=== PATIENT | female | born 1955 | race Caucasian/White ===

== ENCOUNTER → 2016-10-08 | Outpatient (CLI) | payer OTHER ==
[2015-11-06 11:09] VITALS: BP 117/93
[~2016-10-08] MED LIST: ASPI81TA9 PO; LISI1TAB7 PO; LISINOPRIL; SIMV20TA3 PO; VIT1CAPS17 PO
--- NOTE | 2016-10-08 15:10 | RAD ---
DATE: 10/08/2016 EXAM: DIGITAL SCREEN BILAT W/CAD HISTORY: Routine screening COMPARISON: None available This study was interpreted with the benefit of Computerized Aided Detection (CAD). FINDINGS: There are scattered fibroglandular densities in the breasts in a slightly nodular pattern. There is a dominant nodule measuring 6 mm in the right breast at approximately the 10:00 location. Some of its margins are smooth while others are obscured by adjacent fibroglandular tissues. There is a benign type calcification in the right breast. No suspicious microcalcifications are evident. IMPRESSION: Small right breast nodule. Sonographic evaluation is suggested. BI-RADS CATEGORY: 0 INCOMPLETE: NEEDS ADDITIONAL IMAGING EVALUATION AND/OR PRIOR MAMMOGRAMS FOR COMPARISON. RECOMMENDED FOLLOW-UP: ADD ADDITIONAL IMAGING PQRS compliance statement: Patient information was entered into a reminder system with a target due date for the next mammogram. Mammography is a sensitive method for finding small breast cancers, but it does not detect them all and is not a substitute for careful clinical examination. A negative mammogram does not negate a clinically suspicious finding and should not result in delay in biopsying a clinically suspicious abnormality. "Our facility is accredited by the [employer] Mammography Program."
== END | disposition home or self-care (01) ==
LOC: MAMMO 14:20
PROVIDERS: ATTEND Internal Medicine
DX: Z12.31 Encounter for screening mammogram for malignant neoplasm of breast (principal)
CPT/HCPCS: G0202; 77067

== ENCOUNTER → 2016-10-15 | Outpatient (CLI) | payer OTHER ==
[2015-11-06 11:09] VITALS: BP 117/93
--- NOTE | 2016-10-15 13:10 | RAD ---
DATE: 10/15/2016 EXAM: DIGITAL DIAGNOSTIC RT, BREAST RIGHT HISTORY: Suspicious screening study COMPARISON: 10/08/2016 This study was interpreted with the benefit of Computerized Aided Detection (CAD). FINDINGS: Spot compression and straight mediolateral views of the right breast were obtained and correlated with the screening images. The spot compression cc view confirms the presence of a 6 mm nodule projected over the anterolateral aspect of the right breast. It demonstrates some smooth and other partially obscured margins. It is less clearly delineated on the straight mediolateral views, however, it probably lies superiorly. On the straight mediolateral views there is also a smooth 4-5 mm superficial nodule seen inferiorly. It is not clearly delineated on the cc views, probably obscured by overlying fibroglandular shadows. This does not appear to correspond to the lateral nodule due to differences in size. Right breast ultrasound, 10/15/2016: A targeted ultrasound exam of the upper outer quadrant was performed. No cystic or solid lesion is identified. There is no sonographic correlate for the nodule seen on the mammograms. Under mammographic guidance we also marked the skin surface superiorly over the lateral mammographic nodule and repeated the ultrasound evaluation. Again, no corresponding breast nodule could be seen either superior or inferiorly at this level in the lateral aspect of the right breast. IMPRESSION: 1. Small right lateral breast nodule with no sonographic correlate. This may represent a fibroadenoma or lymph node which cannot be sonographically differentiated from the normal heterogeneous fibroglandular shadows. A neoplastic etiology cannot be excluded. Follow-up mammography in 4-6 months is suggested. An attempt at stereotactic biopsy would be a reasonable alternative. 2. Additional tiny superficial benign-appearing nodule in the inferior aspect of the right breast. Mammographic follow-up is suggested. BI-RADS CATEGORY: 3 PROBABLY BENIGN FINDING(S)-SHORT INTERVAL FOLLOW-UP SUGGESTED RECOMMENDED FOLLOW-UP: 6M 6 MONTH FOLLOW-UP PQRS compliance statement: Patient information was entered into a reminder system with a target due date for the next mammogram. Mammography is a sensitive method for finding small breast cancers, but it does not detect them all and is not a substitute for careful clinical examination. A negative mammogram does not negate a clinically suspicious finding and should not result in delay in biopsying a clinically suspicious abnormality. "Our facility is accredited by the [employer] Mammography Program."
== END | disposition home or self-care (01) ==
LOC: US 07:24
PROVIDERS: ATTEND Internal Medicine
DX: N63 Unspecified lump in breast (principal); R92.8 Other abnormal and inconclusive findings on diagnostic imaging of breast
CPT/HCPCS: 76641; G0206; 77065

== ENCOUNTER → 2017-05-27 | Outpatient (CLI) | payer OTHER ==
[2015-11-06 11:09] VITALS: BP 117/93
[~2017-05-27] MED LIST changes: +ASPI-612 PO; -ASPI81TA9 PO
--- NOTE | 2017-05-27 10:58 | RAD ---
DATE: 05/27/2017 EXAM: DIGITAL DIAGNOSTIC RT HISTORY: Follow-up. COMPARISON: Note is made of the screening examination October 08, 2016 and the diagnostic examination 10/15/2016 This study was interpreted with the benefit of Computerized Aided Detection (CAD). FINDINGS: Breast Density: SCATTERED The breast parenchyma shows scattered fibroglandular densities. Breast parenchyma level B. Small nodule in the right breast is seen and appears unchanged compared to the previous exam. There has not been a significant change in the appearance of the breast relative to the previous exam follow-up bilateral mammography in September, IMPRESSION: Unchanged nodule right breast. Benign findings. Follow-up bilateral screening examination suggested in 3-6 months BI-RADS CATEGORY: 2 BENIGN FINDING(S) RECOMMENDED FOLLOW-UP: 6M 6 MONTH FOLLOW-UP PQRS compliance statement: Patient information was entered into a reminder system with a target due date September, for the next mammogram. Mammography is a sensitive method for finding small breast cancers, but it does not detect them all and is not a substitute for careful clinical examination. A negative mammogram does not negate a clinically suspicious finding and should not result in delay in biopsying a clinically suspicious abnormality. "Our facility is accredited by the [employer] Mammography [employer]."
== END | disposition home or self-care (01) ==
LOC: MAMMO 10:00
PROVIDERS: ATTEND Internal Medicine
DX: N63 Unspecified lump in breast (principal)
CPT/HCPCS: G0206; 77065

== ENCOUNTER → 2019-09-07 | Outpatient (CLI) | payer MEDICARE, OTHER ==
[2015-11-06 11:09] VITALS: BP 117/93
[~2019-09-07] MED LIST changes: +LISI1TAB20 PO; -LISI1TAB7 PO; +SIMV20TA18 PO; -SIMV20TA3 PO
--- NOTE | 2019-09-07 11:06 | CARD ---
MR#: [id number] Date of Study: 09/07/2019 Ordering Physician: RENETTA GALLEGOS, Referring Physician: RENETTA GALLEGOS, Tech: Liz Parmar APPROVED REPORT EXAM: Two-dimensional and M-mode echocardiogram with Doppler and color Doppler. Other Information Quality : AverageHR: 51bpm INDICATION Atrial Fibrillation Murmur RISK FACTORS Hypertension Hyperlipidemia Previous smoker 2D DIMENSIONS RVDd3.8 (2.9-3.5cm)Left Atrium(2D)3.9 (1.6-4.0cm) IVSd1.2 (0.7-1.1cm)Aortic Root(2D)3.2 (2.0-3.7cm) LVDd4.6 (3.9-5.9cm)LVOT Diameter2.2 (1.8-2.4cm) PWd1.0 (0.7-1.1cm)LVDs3.1 (2.5-4.0cm) FS (%) 32.6 %SV59.8 ml Aortic Valve AoV Peak Len.167.0cm/sAoV VTI36.4cm AO Peak GR.11.2mmHgLVOT Peak Len.128.3cm/s LVOT VTI 28.97cmAO Mean GR.5mmHg SAURAV (VMAX)2.48gt6TQR (VTI)2.98cm2 AI P 1/2 Onfd933cu Mitral Valve MV E Vtetwdsj48.3cm/sMV DECEL FLTA672el MV A Bhznwaeh90.0cm/sMV E Mean Gr.2mmHg MV YQX30roD/A Ratio1.0 MVA (PHT)3.85cm2 TDI E/Lateral E'13.7E/Medial E'14.6 Pulmonary Valve PV Peak Rywdgczj546.9cm/sPV Peak Grad.5mmHg Tricuspid Valve TR P. Eehjijys127nr/sRAP NVUYYXXL7pdMl TR Peak Gr.73lyWrCMKQ31dpZz Pulmonary Vein S1 Zlrezzpi75.4cm/sD2 Qcrmigea59.9cm/s PVa tnmczgns687zral LEFT VENTRICLE The left ventricle is normal size. There is mild concentric left ventricular hypertrophy. The left ve ntricular systolic function is normal and the ejection fraction is within normal range. The Ejection Fraction is 55-60%. There is normal LV segmental wall motion. Transmitral Doppler flow pattern is Gra de I-abnormal relaxation pattern. RIGHT VENTRICLE The right ventricle is normal size. There is normal right ventricular wall thickness. The right ventr icular systolic function is normal. ATRIA The left atrium size is normal. The right atrium size is normal. The interatrial septum is intact wit h no evidence for an atrial septal defect or patent foramen ovale as noted on 2-D or Doppler imaging. AORTIC VALVE The aortic valve is thickened but opens well. Doppler and Color Flow revealed trace aortic regurgitat ion. There is no significant aortic valvular stenosis. MITRAL VALVE The mitral valve is normal in structure and function. There is no evidence of mitral valve prolapse. There is no mitral valve stenosis. Doppler and Color-flow revealed trace mitral regurgitation. TRICUSPID VALVE The tricuspid valve is normal in structure and function. Doppler and Color Flow revealed trace tricus pid regurgitation with an estimated PAP of 32 mmHg. There is no tricuspid valve stenosis. PULMONIC VALVE The pulmonic valve is not well visualized. Doppler and Color Flow revealed trace pulmonic valvular re gurgitation. GREAT VESSELS The aortic root is normal in size. The IVC is normal in size and collapses >50% with inspiration. PERICARDIAL EFFUSION There is no evidence of significant pericardial effusion. Critical Notification Critical Value: No <Conclusion> The left ventricle is normal size. The left ventricular systolic function is normal and the ejection fraction is within normal range. The Ejection Fraction is 55-60%. There is mild concentric left ventricular hypertrophy. Doppler and Color Flow revealed trace aortic regurgitation. There is no significant aortic valvular stenosis. Doppler and Color-flow revealed trace mitral regurgitation. Doppler and Color Flow revealed trace tricuspid regurgitation with an estimated PAP of 32 mmHg. Signed by : Renetta Gallegos MD Electronically Approved : 09/07/2019 11:06:07
== END | disposition home or self-care (01) ==
LOC: ECHO 09:52
PROVIDERS: ATTEND Internal Medicine Cardiovascular Disease
DX: I11.9 Hypertensive heart disease without heart failure (principal); I48.91 Unspecified atrial fibrillation; E78.5 Hyperlipidemia, unspecified; Z87.891 Personal history of nicotine dependence
CPT/HCPCS: 93306

== ENCOUNTER → 2020-02-12 | Outpatient (CLI) | payer MEDICARE ==
[2015-11-06 11:09] VITALS: BP 117/93
--- NOTE | 2020-02-12 11:24 | RAD ---
DATE: 02/12/2020 9:16 AM EXAM: MAMMO MEJIA SCREENING BILATERAL HISTORY: Screening COMPARISON: 05/27/2017 Bilateral CC and MLO views of the breasts were performed. Bilateral breast tomosynthesis was performed in CC and MLO projections. This study was interpreted with the benefit of Computerized Aided Detection (CAD). FINDINGS: Breast Density: FATTY The Breast Parenchyma is primarily fatty replaced. Breast parenchyma level density A. No suspicious masses, microcalcifications or architectural distortion is present to suggest malignancy in either breast. The visualized axillae are unremarkable. IMPRESSION: No mammographic evidence of malignancy. BI-RADS CATEGORY: 1 NEGATIVE RECOMMENDED FOLLOW-UP: 12M 12 MONTH FOLLOW-UP Annual screening mammography is recommended, unless clinically indicated sooner based on symptoms or change in physical exam. PQRS compliance statement: Patient information was entered into a reminder system with a target due date 02/12/2021 for the next mammogram. Mammography is a sensitive method for finding small breast cancers, but it does not detect them all and is not a substitute for careful clinical examination. A negative mammogram does not negate a clinically suspicious finding and should not result in delay in biopsying a clinically suspicious abnormality. "Our facility is accredited by the [employer] Mammography Program."
== END | disposition home or self-care (01) ==
LOC: MAMMO 11:02
PROVIDERS: ATTEND Internal Medicine
DX: Z12.31 Encounter for screening mammogram for malignant neoplasm of breast (principal)
CPT/HCPCS: 77063; 77067

== ENCOUNTER → 2020-03-25 | Outpatient (CLI) | payer MEDICARE ==
[2015-11-06 11:09] VITALS: BP 117/93
--- NOTE | 2020-03-25 09:28 | KCIC ---
MRI Cervical Spine Without Contrast History:Neck pain for one year, right shoulder pain for 6 to 8 months Technique: Multiplanar, multi sequential noncontrast MR imaging was performed of the cervical spine. Comparison: None Findings: There is motion degradation. Cervical cord caliber is within normal limits without defined or expansile signal abnormality. Cervical vertebral body stature is maintained. There is very minimal posterior subluxation of C5 relative to C6 and minimal grade 1 anterior spondylolisthesis C3-4, negligible anterior spondylolisthesis at C4-5. There is moderate to severe degenerative disc disease C5-6, minimally C3-4, mild disc desiccation C4-5 and C6-7. There is anterior annular tear at C4-5. There is no significant marrow edema. C2-C3: Neural foramina and spinal canal are adequate. C3-C4: There is severe left facet degenerative change. There is mild left uncovertebral degenerative change. There is moderate to severe narrowing of the left neural foramen. Right neural foramen and spinal canal are adequate. C4-C5: There is very shallow posterior central protrusion. Central canal is borderline about 10 mm. There is facet degenerative change greater on the left. Neural foramina are not significantly narrowed, very mild narrowing on the right. C5-C6: There is broad posterior protrusion about 2 to 3 mm AP. Central canal is narrowed to about 8 to 9 mm. There is bilateral facet degenerative change. There is uncovertebral degenerative change greater on the right. Poorly characterized due to motion, there is probably a small protrusion at the anterior proximal aspect of the right neural foramen. There is suspected moderate to severe narrowing of the proximal right neural foramen. There is likely mild narrowing of the left neural foramen. C6-C7: There is disc osteophyte complex and superimposed about 2 mm AP protrusion with mild indentation upon the ventral thecal sac greatest centrally. Central canal is minimally narrowed about 9 mm. There is facet degenerative change. There is mild narrowing of the left neural foramen, right neural foramen overall adequate. C7-T1: Neural foramina and spinal canal are adequate. Impression: 1. There is degenerative disc disease greatest C5-6. There is spinal stenosis about 8 to 9 mm at C5-6 and to a somewhat lesser degree at C6-7. 2. Facet and uncovertebral degenerative change contributes to neural foramina compromise as stated greatest on the left at C3-4 and on the right at C5-6 although there is also possible small protrusion at the anterior proximal aspect of the right C5-6 neural foramen. 3. There is multilevel mild abnormal alignment as stated. Electronically signed by: Deyvi Langford MD (03/25/2020 9:25 AM) [id number]
--- NOTE | 2020-03-25 09:59 | KCIC ---
EXAM: MRI right shoulder DATE: 03/25/2020 8:45 AM COMPARISON: 03/17/2020 INDICATION: RIGHT SHOULDER PAIN-Right shoulder pain x 6-8 months. TECHNIQUE: Multiplanar, multisequence MRI of the right shoulder was performed without contrast. FINDINGS: AC joint degenerative changes are seen. Type II acromion. No os acromiale. Subacromial subdeltoid bursal fluid from full-thickness rotator cuff tear described below. There is a very small right shoulder joint effusion. There is a full-thickness, subtotal width tear of the supraspinatus tendon. Anteriorly the fluid defect measures 1.5 cm in AP dimension posteriorly, heterogeneous signal is seen, likely representing scar tissue extending additional 1.6 cm. Tendinous retraction to the AC joint There is also a partial-thickness articular sided tear of the infraspinatus tendon posteriorly measuring approximately 7 mm in AP dimension. Subscapularis and infraspinatus tendinosis. Extra-articular long head biceps tendon is seen within the bicipital groove. Increased signal and thickening of the intra-articular segment of the long head biceps tendon consistent with moderate tendinosis. Diffuse deformity of the labrum likely from chronic degeneration although no obvious acute tear is identified. Chondral thinning anteriorly within the glenoid. No fracture or osteonecrosis. IMPRESSION: 1. Full-thickness, subtotal width tear of the supraspinatus tendon with heterogeneous scar tissue posteriorly. 2. Partial-thickness articular sided tear of the posterior infraspinatus tendon involving approximately 50 percent tendon thickness 3. Intra-articular long head biceps tendinosis. Electronically signed by: Fadi Garcia MD (03/25/2020 9:56 AM) [id number]
== END | disposition home or self-care (01) ==
LOC: KCIC MRI 08:24
PROVIDERS: ATTEND Orthopaedic Surgery
DX: S13.160A Subluxation of C5/C6 cervical vertebrae, initial encounter (principal); M75.101 Unspecified rotator cuff tear or rupture of right shoulder, not specified as traumatic; M21.821 Other specified acquired deformities of right upper arm; M50.31 Other cervical disc degeneration, high cervical region; M48.02 Spinal stenosis, cervical region; M43.12 Spondylolisthesis, cervical region; X58.XXXA Exposure to other specified factors, initial encounter; Y93.89 Activity, other specified; Y92.89 Other specified places as the place of occurrence of the external cause; Y99.8 Other external cause status
CPT/HCPCS: 72141; 73221

== ENCOUNTER → 2020-05-20 | Outpatient (CLI) | payer MEDICARE ==
[2015-11-06 11:09] VITALS: BP 117/93
[~2020-05-20] MED LIST changes: -ASPI-612 PO; +ASPI-886 PO; +OMEP20CA16 PO; +PRAM2.252 PO
== END | disposition home or self-care (01) ==
LOC: LAB 13:27
PROVIDERS: ATTEND Orthopaedic Surgery
DX: Z20.828 Contact with and (suspected) exposure to other viral communicable diseases (principal)
CPT/HCPCS: U0003-CS

== ENCOUNTER 2020-05-23 05:57 | Day surgery (SDC) | payer MEDICARE ==
[~2020-05-23] VITALS: Ht 163.8 cm; Wt 68.0 kg
[2020-05-23] MEDS ORDERED: BUPIVACAINE MPF 0.5% 30 ML VIAL. ONE (06:36)
[2020-05-23] MEDS ORDERED: MIDAZOLAM HCL/PF 2 MG/2 ML VIAL. ONE (06:52)
[2020-05-23] MEDS ORDERED: fentaNYL PF VIAL 100 MCG/2 ML VIAL IV PRN ×2 (07:00)
[2020-05-23] MEDS ORDERED: PROCHLORPERAZINE 10 MG/2 ML VIAL. IV PRN (07:00)
[2020-05-23] MEDS ORDERED: IV RINGERS,LACTATED 1000ML 1,000 ML IV SCH (07:00)
[2020-05-23] MEDS ORDERED: LIDOCAINE 1% PF 2 ML VIAL. ID PRN (07:00)
[2020-05-23] MEDS ORDERED: MORPHINE SULFATE 2 MG/ML VIAL. IV PRN (07:00)
[2020-05-23] MEDS ORDERED: HYDROmorphone 2 MG/ML VIAL IV PRN (07:00)
[2020-05-23] MEDS ORDERED: ONDANSETRON PF 4 MG/2 ML VIAL. IV PRN (07:00)
[2020-05-23] MEDS ORDERED: NEOSTIGMINE METHYLSULFATE 5 MG/5 ML SYRINGE. ONE (07:07)
[2020-05-23] MEDS ORDERED: LIDOCAINE 2% PF 5 ML VIAL. ONE (07:07)
[2020-05-23] MEDS ORDERED: PROPOFOL 10 MG/ML (20ML) VIAL. IV ONE (07:07)
[2020-05-23] MEDS ORDERED: ROCURONIUM 50 MG/5 ML VIAL. ONE (07:07)
[2020-05-23] MEDS ORDERED: GLYCOPYRROLATE 1 MG/5 ML VIAL. ONE (07:07)
[2020-05-23] MEDS ORDERED: BUPIVACAINE-EPI 0.5%-1:200000 MPF 30 ML VIAL. ONE ×2 (07:07→07:08)
[2020-05-23] MEDS ORDERED: fentaNYL PF VIAL 100 MCG/2 ML VIAL ONE ×3 (07:07→10:34)
[2020-05-23] MEDS ORDERED: EPINEPHrine VIAL 30 MG/30 ML VIAL ONE (07:08)
[2020-05-23] MEDS ORDERED: DEXAMETHASONE SOD PHOS 4 MG/ML VIAL ONE (07:10)
[2020-05-23] MEDS ORDERED: ONDANSETRON PF 4 MG/2 ML VIAL. ONE (07:10)
[2020-05-23] MEDS ORDERED: MIDAZOLAM HCL/PF 2 MG/2 ML VIAL. IV ONE (07:30)
[2020-05-23] MEDS ORDERED: ceFAZolin SODIUM IV Push 1 GM VIAL. IVP ONE (08:12)
--- NOTE | 2020-05-23 10:08 | PDOC4 ---
Operative Note Operative Note Date of Procedure: May 23, 2020 Pre-Op Diagnosis: * Complete tear of right rotator cuff, unspecified whether traumatic - M75.121 * Biceps tendinosis of right shoulder - M67.813 * Impingement syndrome of right shoulder - M75.41 * Primary osteoarthritis, right shoulder acromioclavicular joint - M19.011 Post-Op Diagnosis: * Complete tear of right rotator cuff, unspecified whether traumatic - M75.121 * Biceps tendinosis of right shoulder - M67.813 * Impingement syndrome of right shoulder - M75.41 * Primary osteoarthritis, right shoulder acromioclavicular joint - M19.011 Procedure: * Right shoulder, repair of ruptured musculotendinous cuff (rotator cuff) open, acute CPT 06161 * Right shoulder open biceps tenodesis CPT 98961 * Arthroscopy, shoulder, surgical; decompression of subacromial space with partial acromioplasty CPT 96861 * Arthroscopy, shoulder, surgical; distal claviculectomy including distal articular surface (Brigette procedure) CPT 68056 Surgeon: Danilo Reyes MD Machine Cloth Examiner: WADE Baig Anesthesia: General EBL: 50 mL Specimens Obtained: none Complications: none Drains: none Findings: Full-thickness rotator cuff tear of the supraspinatus tendon and partial tearing of the infraspinatus tendon. Impingement occurring due to prominent acromion. Prominent arthritic acromioclavicular joint. She had bony prominences and spurs at the humeral footprint which were removed with a rongeurs. Implants: Arthrex swivel lock anchors 4.75 mm x 4, Arthrex 7 mm Biceps Tenodesis Swivelock. Indications for Procedure: 65 year old woman with progressive right shoulder pain over the past 8-12 months. Patient notices pain sleeping on her side, reaching overhead, and holding a gallon of milk. On examination she has impingement syndrome, probable rotator cuff tear, bicipital tenosynovitis, and painful acromioclavicular joint osteoarthritis which is also causing impingement. I recommended arthroscopy with subacromial decompression, distal clavicle excision, biceps tenodesis and rotator cuff repair. There is a chance the cuff repair will not be repairable and I discussed the possibility of using an allograft and perform superior capsule reconstruction if the tear cannot be repaired. We discussed the potential risks of infection, neurovascular injury, fracture, bleeding, or other potential surgical or anesthetic complications. We also discussed healing expectations including postoperative use of DonJoy sling, need for physical therapy, and refrain from overhead lifting for 3 months; I described that this is a more difficult surgery than many common surgeries, and she may take up to a year to heal. All of her questions were answered and she desires to proceed with surgery. Procedure in Detail: The patient was identified in the preoperative holding area. The correct right shoulder was marked by me. The patient was taken to the operating room where general anesthesia was used. The patient was positioned in the beachchair position with the bony prominences well-padded and the eyes protected. Preoperative antibiotics were given intravenously. A timeout procedure was performed. Under sterile technique 20 mL of bupivacaine with epinephrine was injected into the subacromial space and glenohumeral joint. The limb was then thoroughly prepared with surgical ChloraPrep solution circumferentially. Sterile waterproof arthroscopy shoulder drapes were applied, along with an impervious stockinette over the arm, and a Spider arm harrington. Posterior, posterolateral, lateral, and anterior arthroscopy portals were used. The glenohumeral joint showed normal articular surfaces with minor labral degeneration but no need for extensive debridement. The biceps tendon was palpated with the shaver, and retracted into the joint, and the tendon is visually torn about skilled nursing through, and the remaining tendon is of poor quality with tendinosis. I completed the partial tear of the biceps with the [employer] Edge thermal energy bipolar device in preparation for the tenodesis. The distal portion of the supraspinatus is detached from the humeral head, and the footprint is exposed. This is a full-thickness tear of the supraspinatus. The subacromial space was entered. The anterior acromion was prominent and the subacromial space was narrowed. The [employer] Edge thermal energy bipolar device was used for hemostasis and to resect the undersurface periosteum exposing the prominent anterior acromion. A 6.0 mm oval mary was used for the acromioplasty. A three-stage acromioplasty was performed, with the mary first laterally, removing anterior acromion, using the distal clavicle as a reference. The mary was then placed in the posterior portal, and a cutting block technique was used for smoothing of the lateral edge of the acromion tapering the anterior acromion into a Bigliani type I configuration. Final smoothing of the acromion was performed with the mary again in the lateral portal, and direct arthroscopic visualization. The impingement of the subacromial space was now nicely decompressed. No further impingement appears to be occurring from the acromion, however the arthritic distal clavicle is degenerative with an osteoarthritic distal clavicle articular surface. The mary was used to resect the entire articular surface of the distal clavicle and 10 mm of distal clavicle bone, completing the [place] arthroscopic distal clavicle excision. The [employer] thermal energy device was used for hemostasis. The cuff tear was easily visualized and appears repairable, without need for superior capsule reconstruction. The arthroscopic instruments were removed. Antibiotics were redosed. Outer gloves were changed. The skin was prepared a second time with ChloraPrep solution. An anterior lateral deltoid raphae splinting incision was used. Care was made not to extend more than 4 cm distally so as to avoid axillary nerve injury. Self-retaining retractors were placed. My anesthesiologist assistant certified used an [employer] retractor in addition to the self-retaining retractors. A rongeurs and a bone punch were used to decorticate the supraspinatus footprint, and create a "crimson duvet". The initial portion of the repair was from the supraspinatus to the infraspinatus in a [id number]-[id number]-echr fashion. I used the scorpion device to place [id number] sutures, repairing the posterior V split into the infraspinatus and the side to side fashion for secure repair of that infraspinatus tear, and now leaving essentially a large crescent tear of the supraspinatus and very anterior edge of the infraspinatus to the footprint. The 2 medial 4.75 mm swivel lock anchors with swaged suture tapes were used, but due to her soft bone I used a smaller bone punch for all of the anchor placements. All of the medial sutures were deployed with Arthrex scorpion device, about 16 mm from the distal edge of the cuff. The medial mattress sutures were secured and tied, and Carmine my anesthesiologist assistant certified held tension reducing the cuff while the sutures were tied, and these medial mattress sutures were placed in a ripstop pattern to prevent the tapes from tearing through the abnormal cuff tissue. It would have been impossible to debride and remove all of the abnormal tissue as there would have been no cuff left to repair. The swaged suture tapes were then trimmed, the tapes were crossed, and the 2 lateral row anchors were now placed on the humeral cortex for secure speed bridge repair. The additional sutures from the lateral row anchors were used anteriorly and posteriorly to secure the edges of the dog ear of the tear. A secure and tension-free repair was obtained. The shoulder was taken through a range of motion, and the repair security confirmed. Copious saline irrigation was used. I closed the fascia of the deltoid with #1 Vicryl suture in a [id number] fashion. My anesthesiologist assistant certified Armando then completed the subcutaneous closure with 2-0 Vicryl. He closed the portals with #3-0 Prolene. He repaired the skin incision with #3-0 Stratafix, Mastisol and Steri- Strips. He injected an additional 30 mL of bupivacaine with epinephrine. Xeroform was used over the portals. A bulky sterile dressing was applied. A DonJoy UltraSling was applied. There were no apparent complications. DANILO REYES MD May 23, 2020 10:08
[2020-05-23] MEDS ORDERED: OXYC-325 PO (10:40)
[2020-05-23] MEDS ORDERED: PROM25TA10 PO (10:42)
[2020-05-23] MEDS ORDERED: oxyCODONE/APAP 5/325 1 TAB TABLET PO PRN (10:45)
[2020-05-23] MEDS ORDERED: oxyCODONE/APAP 5/325 1 TAB TABLET PO ONE (10:45)
[2020-05-23 10:50] VITALS: BP 128/56
== END 2020-05-23 11:40 | disposition home or self-care (01) ==
LOC: SURG 05:57
PROVIDERS: ATTEND Orthopaedic Surgery
DX: M75.121 Complete rotator cuff tear or rupture of right shoulder, not specified as traumatic (principal); M75.41 Impingement syndrome of right shoulder; M19.011 Primary osteoarthritis, right shoulder; M67.813 Other specified disorders of tendon, right shoulder; I11.0 Hypertensive heart disease with heart failure; I50.9 Heart failure, unspecified; E78.5 Hyperlipidemia, unspecified; Z79.82 Long term (current) use of aspirin; Z79.899 Other long term (current) drug therapy; Z87.891 Personal history of nicotine dependence
CPT/HCPCS: 23410; 23430; 29824; 29826; A7015; C1713; C1782; J0171; J0690; J1100; J2250; J2405; J2704; J2710; J3010; J3490; J7120

== ENCOUNTER → 2021-02-16 | Outpatient (CLI) | payer MEDICARE ==
[~2021-02-16] MED LIST changes: +OXYC-325 PO; +PROM25TA10 PO
--- NOTE | 2021-02-16 12:19 | RAD ---
EXAM: BILATERAL DIGITAL SCREENING MAMMOGRAPHY. HISTORY: Routine mammographic screening. TECHNIQUE: Bilateral full field digital images were obtained in CC and MLO projections. Computer-aide d detection was applied. COMPARISON: 02/12/2020, 05/27/2017, 10/08/2016. COMPOSITION: B. There are scattered areas of fibroglandular density. FINDINGS: Circumscribed nodules bilaterally are stable and benign. A coarse calcification on the left is benign. There are no suspicious masses, microcalcifications or architectural distortion. The pare nchymal pattern is stable. BI-RADS CATEGORY 2: Benign. RECOMMENDATION: 1. Routine screening mammography in one year. If mammography demonstrates dense breast tissue (heterogenously dense or extremely dense, category C or D), which could hide abnormalities, and if other risk factors for breast cancer have been identifi ed, supplemental screening tests that may be suggested by the ordering physician may be of benefit. D ense breast tissue, in and of itself, is a relatively common condition. Therefore, this information i s not provided to cause undue concern, but rather to raise awareness and to promote discussion with t he referring physician regarding the presence of other risk factors, in addition to dense breast tiss ue. The results of this mammography examination is provided to the patient and referring physician. T he patient should contact their referring physician if any questions or concerns exist regarding this report. PQRS compliance statement - Patient information was entered into a reminder system with a target due date for the next mammogram. "Our facility is accredited by the [employer] Mammography [employer]." Electronically signed by: Shelby Xie MD (02/16/2021 12:17 PM) [facility]
== END ==
LOC: MAMMO 09:15
PROVIDERS: ATTEND Internal Medicine
DX: Z12.31 Encounter for screening mammogram for malignant neoplasm of breast (principal)
CPT/HCPCS: 77063; 77067

== ENCOUNTER → 2021-03-17 | Outpatient (CLI) | payer MEDICARE ==
[~2021-03-17] MED LIST changes: +REGADENOSON 0.4 MG/5 ML DISP.SYRIN. IV ONE
--- NOTE | 2021-03-17 18:34 | RAD ---
MR#: [id number] Date of Study: 03/17/2021 Ordering Physician: RENETTA DELVALLE, Referring Physician: ALONSO CAMPOS Tech: RT Sandra Garcia) (N) APPROVED REPORT Test Type: Pharmacological Stress Nurse/Tech: Janet Guerra RN Test Indications: Chest Pressure and Left shoulder pain Cardiac History: HTN, See EMR. Medications: See EMR. Medical History: X-Smoker=Quit 10 yrs ago, See EMR. Resting ECG: SR Resting Heart Rate: 51 bpm Resting Blood Pressure: 129/57mmHg Pretest Chest Pain: No chest pain Nurse/Tech Notes Lungs CTA, Heart tones regular. Consent: The procedure was explained to the patient in lay terms. Informed consent was witnessed. Dimitry eout was entered into [employer]. History and Stress Test performed by RT Jose (R) (N) Pharm. Details Pharmacologic stress testing was performed using 0.4mg per 5ml of regadenoson given intravenously ove r 7-10 seconds. POST EXERCISE Reason for Termination: Infusion complete Max HR: 83 bpm Max Blood Pressure: 134/56mmHg Blood Pressure response to exercise: Normal blood pressure response during stress. Heart Rate response to exercise: WNL Chest Pain: No. Arrhythmia: No. ST Change: No. INTERPRETATION Stress EKG Conclusion: No evidence of stress induced EKG changes. Imaging Protocol IMAGE PROTOCOL: Rest Tc-99m/stress Tc-99m 1 day Rest: Stress: Viability: Radiopharm.Tc99m [id number] Sestamibi Dose10.5mCi 30.8mCi Duration 13min. 13min. Img Date 03/17/2021 03/17/2021 Inj-Img [id number]. 60min. Rest Admin Site:IV - Right AntecubitalAdministrator:RT Jose (R)(N) Stress Admin Site: IV - Right AntecubitalAdministrator: RT Jose (R)(N) STRESS DATA End Diast. Vol.90.0mlLVEDV index BSA50.0ml End Syst. Vol.18.0mlLVESV index BSA10.0ml Myocardial Fbys190.0gEject. Xfzpkary02.0% Stress Scores Regional WT0.00Summed WT1.00 Regional WM0.00Summed WM0.00 The rest and stress images show normal perfusion, normal contraction and thickening. LV Perf. Quant 17 Seg. SSS0.00 17 Seg. SRS3.00 17 Seg. SDS0.00 Stress Defect Extent (% LAD)0.00Rest Defect Extent (% LAD)0.00Rev. Defect Extent (% LAD)0.00 Stress Defect Extent (% LCX) 0.00Rest Defect Extent (% LCX)0.00Rev. Defect Extent (% LCX)0.00 Stress Defect Extent (% RCA)0.00Rest Defect Extent (% RCA)0.00Rev. Defect Extent (% RCA)0.00 Stress Defect Extent (% LOPEZ)0.00Rest Defect Extent (% LOPEZ)0.00Rev. Defect Extent (% LOPEZ)0.00 Other Information Quality:Average Risk Assessment: Low Risk Conclusion 1. No evidence of EKG changes with stress testing. 2. Normal perfusion at stress/rest. 3. Low risk study. 4. EF > 60%. Signed by : Flaco Burrows, Electronically Approved : 03/17/2021 18:33:49
== END ==
LOC: NM 08:59
PROVIDERS: ATTEND Internal Medicine Cardiovascular Disease
DX: R07.89 Other chest pain (principal)
CPT/HCPCS: 78452; 93017; A9500; J2785

== ENCOUNTER → 2021-07-02 | Outpatient (CLI) | payer MEDICARE ==
[~2021-07-02] MED LIST changes: -REGADENOSON 0.4 MG/5 ML DISP.SYRIN. IV ONE
--- NOTE | 2021-07-02 15:54 | KCIC ---
EXAM: MRI RIGHT SHOULDER WITHOUT CONTRAST INDICATION: Post rotator cuff repair. Evaluate surgical integrity one year later. Shoulder pain and l imited range of motion COMPARISON: MRI right shoulder 03/25/2020 TECHNIQUE: Multiplanar, multisequence imaging of the right shoulder without contrast. FINDINGS: ROTATOR CUFF: There are surgical changes of rotator cuff repair. The repaired anterior supraspinatus tendon is thinned in appearance but appears intact. The posterior supraspinatus tendon and infraspina tus tendon are very irregular and thickened with increased signal, similar or slightly worsened epi red to 03/25/2020, but there is no definite full-thickness tear. The subscapularis tendon is intact. T eres minor tendon is intact. No rotator cuff muscle atrophy or edema. LABRUM: Limited evaluation of the superior labrum due to motion artifact. No definite new abnormality . BICEPS TENDON: Surgical changes of biceps tenodesis. ACROMIOCLAVICULAR JOINT: Surgical changes of acromioplasty. GLENOHUMERAL JOINT: Evaluation of cartilage is limited due to motion artifact. No definite full-thick ness cartilage loss. There is a new subchondral T1 hypointense, T2 hyperintense crescentic line at th e superomedial femoral head consistent with avascular necrosis. This involves the area of about 1.6 x 1.6 cm coronal by sagittal diameter. No flattening of the humeral head. OTHER: There is a small joint effusion and fluid in the subacromial-subdeltoid bursa.. IMPRESSION: 1. New avascular necrosis of the humeral head. 2. Surgical changes of rotator cuff repair. The anterior supraspinatus tendon is intact. The posterio r supraspinatus and infraspinatus tendons are very irregular with increased signal, unchanged to slig htly worsened from prior exam, but there is no definite full-thickness tear. 3. Additional surgical changes as described. Electronically signed by: Shelly Knox MD (07/02/2021 3:52 PM) [facility]
== END ==
LOC: KCIC MRI 07:53
PROVIDERS: ATTEND Orthopaedic Surgery
DX: M87.821 Other osteonecrosis, right humerus (principal); M25.411 Effusion, right shoulder; M25.811 Other specified joint disorders, right shoulder; Z98.890 Other specified postprocedural states
CPT/HCPCS: 73221